=== PATIENT | female | born 1940 | race Caucasian/White ===

== ENCOUNTER → 2023-11-25 16:00 | Outpatient (REF) | payer MEDICARE, OTHER, SELFPAY ==
[2023-11-25 16:34] LABS: % Eosinophils 9.9 % (0-6); % Immature Granulocytes 0.2 % (0-0.5); % Lymphocytes 27.6 % (20.5-51.1); % Monocytes 13.8 % (1.7-9.3); % Neutrophils 47.5 % (42.2-75.2); Absolute Basophils 0.1 10^3/uL (0-0.2); Absolute Eosinophils 0.8 10^3/uL (0-0.7); Absolute Lymphocytes 2.2 10^3/uL (1.2-3.4); Absolute Monocytes 1.1 10^3/uL (0.1-0.6); Absolute Neutrophils 3.8 10^3/uL (1.4-6.5); Hematocrit 39.7 % (37.0-47.0); Hemoglobin 13.1 g/dL (12.0-16.0); Mean Corpuscular Volume 78.9 fL (81.0-99.0); Mean Platelet Volume 10.2 fL (7.4-10.4); Nucleated Red Blood Cells % 0 %; Platelet Count 401 10^3/uL (130-400); Red Blood Cell Count 5.03 10^6/uL (4.20-5.40); Red Cell Dist. Width 15.4 % (11.5-14.5)
== END ==
LOC: REG 16:00
PROVIDERS: ATTENDING PHYSICIAN Internal Medicine Hematology & Oncology; FAMILY PHYSICIAN Internal Medicine Geriatric Medicine
DX: D45 Polycythemia vera (principal); C21.1 Malignant neoplasm of anal canal; Z85.3 Personal history of malignant neoplasm of breast; R91.1 Solitary pulmonary nodule
CPT/HCPCS: 36415; 85025

== ENCOUNTER → 2023-12-17 16:05 | Outpatient (REF) | payer MEDICARE, OTHER, SELFPAY ==
[2023-12-17 18:04] LABS: % Basophils 0.7 % (0-2); % Eosinophils 10.4 % (0-6); % Immature Granulocytes 0.4 % (0-0.5); % Lymphocytes 26.5 % (20.5-51.1); % Monocytes 10.7 % (1.7-9.3); % Neutrophils 51.3 % (42.2-75.2); Absolute Basophils 0.1 10^3/uL (0-0.2); Absolute Eosinophils 0.7 10^3/uL (0-0.7); Absolute Lymphocytes 1.8 10^3/uL (1.2-3.4); Absolute Monocytes 0.7 10^3/uL (0.1-0.6); Absolute Neutrophils 3.5 10^3/uL (1.4-6.5); Hematocrit 38.9 % (37.0-47.0); Mean Corp Hgb Conc. 33.4 g/dL (33.0-37.0); Mean Corpuscular Hgb 26.6 pg (27.0-31.0); Mean Corpuscular Volume 79.6 fL (81.0-99.0); Nucleated Red Blood Cells % 0 %; Platelet Count 404 10^3/uL (130-400); Red Blood Cell Count 4.89 10^6/uL (4.20-5.40); Red Cell Dist. Width 16.8 % (11.5-14.5); White Blood Cell Count 6.8 10^3/uL (4.8-10.8)
== END ==
LOC: REG 16:05
PROVIDERS: ATTENDING PHYSICIAN Internal Medicine Hematology & Oncology; FAMILY PHYSICIAN Internal Medicine Geriatric Medicine
DX: D45 Polycythemia vera (principal); C21.1 Malignant neoplasm of anal canal; Z85.3 Personal history of malignant neoplasm of breast; R91.1 Solitary pulmonary nodule
CPT/HCPCS: 36415; 85025

== ENCOUNTER → 2024-01-16 11:52 | Outpatient (REF) | payer MEDICARE, OTHER, SELFPAY ==
[2024-01-16 13:10] LABS: % Basophils 0.7 % (0-2); % Eosinophils 9.7 % (0-6); % Immature Granulocytes 0.2 % (0-0.5); % Lymphocytes 25.2 % (20.5-51.1); % Monocytes 11.1 % (1.7-9.3); % Neutrophils 53.1 % (42.2-75.2); Absolute Eosinophils 0.5 10^3/uL (0-0.7); Absolute Lymphocytes 1.4 10^3/uL (1.2-3.4); Absolute Monocytes 0.6 10^3/uL (0.1-0.6); Absolute Neutrophils 2.9 10^3/uL (1.4-6.5); Hematocrit 38.5 % (37.0-47.0); Hemoglobin 12.2 g/dL (12.0-16.0); Mean Corp Hgb Conc. 31.7 g/dL (33.0-37.0); Mean Corpuscular Hgb 25.8 pg (27.0-31.0); Mean Corpuscular Volume 81.6 fL (81.0-99.0); Mean Platelet Volume 10.8 fL (7.4-10.4); Nucleated Red Blood Cells % 0 %; Platelet Count 320 10^3/uL (130-400); Red Blood Cell Count 4.72 10^6/uL (4.20-5.40); Red Cell Dist. Width 17.2 % (11.5-14.5); White Blood Cell Count 5.5 10^3/uL (4.8-10.8)
== END ==
LOC: REG 11:52
PROVIDERS: ATTENDING PHYSICIAN Internal Medicine Hematology & Oncology; FAMILY PHYSICIAN Internal Medicine Geriatric Medicine
DX: D45 Polycythemia vera (principal); C21.1 Malignant neoplasm of anal canal; Z85.3 Personal history of malignant neoplasm of breast; R91.1 Solitary pulmonary nodule
CPT/HCPCS: 36415; 85025

== ENCOUNTER → 2024-02-20 14:14 | Outpatient (REF) | payer MEDICARE, OTHER, SELFPAY ==
[2024-02-20 14:35] LABS: % Basophils 0.7 % (0-2); % Eosinophils 6.3 % (0-6); % Immature Granulocytes 0.1 % (0-0.5); % Lymphocytes 33.4 % (20.5-51.1); % Monocytes 13.5 % (1.7-9.3); Absolute Basophils 0.1 10^3/uL (0-0.2); Absolute Eosinophils 0.4 10^3/uL (0-0.7); Absolute Lymphocytes 2.2 10^3/uL (1.2-3.4); Absolute Monocytes 0.9 10^3/uL (0.1-0.6); Absolute Neutrophils 3.1 10^3/uL (1.4-6.5); Hematocrit 41.1 % (37.0-47.0); Hemoglobin 13.1 g/dL (12.0-16.0); Mean Corp Hgb Conc. 31.9 g/dL (33.0-37.0); Mean Corpuscular Hgb 25.9 pg (27.0-31.0); Mean Corpuscular Volume 81.4 fL (81.0-99.0); Mean Platelet Volume 10.1 fL (7.4-10.4); Nucleated Red Blood Cells % 0 %; Platelet Count 338 10^3/uL (130-400); Red Blood Cell Count 5.05 10^6/uL (4.20-5.40); Red Cell Dist. Width 18.1 % (11.5-14.5); White Blood Cell Count 6.7 10^3/uL (4.8-10.8)
== END ==
LOC: REG 14:14
PROVIDERS: ATTENDING PHYSICIAN Internal Medicine Hematology & Oncology; FAMILY PHYSICIAN Internal Medicine Geriatric Medicine
DX: D45 Polycythemia vera (principal); C21.1 Malignant neoplasm of anal canal; Z85.3 Personal history of malignant neoplasm of breast; R91.1 Solitary pulmonary nodule
CPT/HCPCS: 36415; 85025

== ENCOUNTER → 2024-03-22 15:24 | Outpatient (REF) | payer MEDICARE, OTHER, SELFPAY ==
[2024-03-22 16:38] LABS: % Basophils 0.8 % (0-2); % Eosinophils 7.5 % (0-6); % Immature Granulocytes 0.3 % (0-0.5); % Lymphocytes 22.5 % (20.5-51.1); % Monocytes 11.1 % (1.7-9.3); % Neutrophils 57.8 % (42.2-75.2); Absolute Basophils 0.1 10^3/uL (0-0.2); Absolute Eosinophils 0.6 10^3/uL (0-0.7); Absolute Lymphocytes 1.8 10^3/uL (1.2-3.4); Absolute Monocytes 0.9 10^3/uL (0.1-0.6); Absolute Neutrophils 4.5 10^3/uL (1.4-6.5); Hematocrit 42.4 % (37.0-47.0); Hemoglobin 13.4 g/dL (12.0-16.0); Mean Corp Hgb Conc. 31.6 g/dL (33.0-37.0); Mean Corpuscular Hgb 25.8 pg (27.0-31.0); Mean Corpuscular Volume 81.7 fL (81.0-99.0); Mean Platelet Volume 10.4 fL (7.4-10.4); Nucleated Red Blood Cells % 0 %; Platelet Count 342 10^3/uL (130-400); Red Blood Cell Count 5.19 10^6/uL (4.20-5.40); Red Cell Dist. Width 17.2 % (11.5-14.5); White Blood Cell Count 7.8 10^3/uL (4.8-10.8)
== END ==
LOC: REG 15:24
PROVIDERS: ATTENDING PHYSICIAN Internal Medicine Hematology & Oncology; FAMILY PHYSICIAN Internal Medicine Geriatric Medicine
DX: D45 Polycythemia vera (principal); C21.1 Malignant neoplasm of anal canal; Z85.3 Personal history of malignant neoplasm of breast; R91.1 Solitary pulmonary nodule
CPT/HCPCS: 36415; 85025

== ENCOUNTER → 2024-05-14 15:25 | Outpatient (REF) | payer MEDICARE, OTHER, SELFPAY ==
[2024-05-14 16:37] LABS: % Basophils 0.8 % (0-2); % Eosinophils 9.3 % (0-6); % Immature Granulocytes 0.2 % (0-0.5); % Lymphocytes 30.2 % (20.5-51.1); % Neutrophils 46.5 % (42.2-75.2); Absolute Basophils 0.1 10^3/uL (0-0.2); Absolute Eosinophils 0.6 10^3/uL (0-0.7); Absolute Lymphocytes 1.9 10^3/uL (1.2-3.4); Absolute Monocytes 0.8 10^3/uL (0.1-0.6); Absolute Neutrophils 2.9 10^3/uL (1.4-6.5); Hematocrit 39.2 % (37.0-47.0); Mean Corp Hgb Conc. 33.2 g/dL (33.0-37.0); Mean Corpuscular Hgb 26.6 pg (27.0-31.0); Mean Corpuscular Volume 80.3 fL (81.0-99.0); Mean Platelet Volume 10.9 fL (7.4-10.4); Nucleated Red Blood Cells % 0 %; Platelet Count 337 10^3/uL (130-400); Red Blood Cell Count 4.88 10^6/uL (4.20-5.40); Red Cell Dist. Width 17.3 % (11.5-14.5); White Blood Cell Count 6.2 10^3/uL (4.8-10.8)
== END ==
LOC: REG 15:25
PROVIDERS: ATTENDING PHYSICIAN Internal Medicine Hematology & Oncology; FAMILY PHYSICIAN Internal Medicine Geriatric Medicine
DX: D45 Polycythemia vera (principal); C21.1 Malignant neoplasm of anal canal; Z85.3 Personal history of malignant neoplasm of breast; R91.1 Solitary pulmonary nodule
CPT/HCPCS: 36415; 85025

== ENCOUNTER → 2024-06-14 14:53 | Outpatient (REF) | payer MEDICARE, OTHER, SELFPAY ==
[2024-06-14 15:35] LABS: % Basophils 0.7 % (0-2); % Eosinophils 5.8 % (0-6); % Immature Granulocytes 1.3 % (0-0.5); % Lymphocytes 29.9 % (20.5-51.1); % Monocytes 11.9 % (1.7-9.3); % Neutrophils 50.4 % (42.2-75.2); Absolute Eosinophils 0.4 10^3/uL (0-0.7); Absolute Immature Granulocytes 0.1 10^3/uL (0-0.05); Absolute Lymphocytes 1.8 10^3/uL (1.2-3.4); Absolute Monocytes 0.7 10^3/uL (0.1-0.6); Hematocrit 42.8 % (37.0-47.0); Hemoglobin 14.3 g/dL (12.0-16.0); Mean Corp Hgb Conc. 33.4 g/dL (33.0-37.0); Mean Corpuscular Volume 83.8 fL (81.0-99.0); Mean Platelet Volume 10.2 fL (7.4-10.4); Nucleated Red Blood Cells % 0 %; Platelet Count 279 10^3/uL (130-400); Red Blood Cell Count 5.11 10^6/uL (4.20-5.40); Red Cell Dist. Width 17.2 % (11.5-14.5)
== END ==
LOC: REG 14:53
PROVIDERS: ATTENDING PHYSICIAN Internal Medicine Hematology & Oncology; FAMILY PHYSICIAN Internal Medicine Geriatric Medicine
DX: D45 Polycythemia vera (principal); C21.1 Malignant neoplasm of anal canal; Z85.3 Personal history of malignant neoplasm of breast; R91.1 Solitary pulmonary nodule
CPT/HCPCS: 36415; 85025

== ENCOUNTER → 2024-07-22 13:46 | Outpatient (REF) | payer MEDICARE, OTHER, SELFPAY ==
[2024-07-22 15:14] LABS: % Basophils 0.7 % (0-2); % Immature Granulocytes 0.3 % (0-0.5); % Lymphocytes 20.2 % (20.5-51.1); % Monocytes 12.3 % (1.7-9.3); % Neutrophils 63.5 % (42.2-75.2); Absolute Basophils 0.1 10^3/uL (0-0.2); Absolute Eosinophils 0.2 10^3/uL (0-0.7); Absolute Lymphocytes 1.4 10^3/uL (1.2-3.4); Absolute Monocytes 0.9 10^3/uL (0.1-0.6); Absolute Neutrophils 4.5 10^3/uL (1.4-6.5); Hematocrit 39.3 % (37.0-47.0); Hemoglobin 13.1 g/dL (12.0-16.0); Mean Corp Hgb Conc. 33.3 g/dL (33.0-37.0); Nucleated Red Blood Cells % 0 %; Platelet Count 409 10^3/uL (130-400); Red Blood Cell Count 4.85 10^6/uL (4.20-5.40); Red Cell Dist. Width 16.3 % (11.5-14.5); White Blood Cell Count 7.1 10^3/uL (4.8-10.8)
== END ==
LOC: REG 13:46
PROVIDERS: ATTENDING PHYSICIAN Internal Medicine Hematology & Oncology; FAMILY PHYSICIAN Internal Medicine Geriatric Medicine
DX: D45 Polycythemia vera (principal); C21.1 Malignant neoplasm of anal canal; Z85.3 Personal history of malignant neoplasm of breast; R91.1 Solitary pulmonary nodule
CPT/HCPCS: 36415; 85025

== ENCOUNTER → 2024-08-20 15:44 | Outpatient (REF) | payer MEDICARE, OTHER, SELFPAY ==
[2024-08-20 16:50] LABS: % Basophils 0.8 % (0-2); % Eosinophils 4.2 % (0-6); % Immature Granulocytes 0.6 % (0-0.5); % Lymphocytes 24.8 % (20.5-51.1); % Monocytes 13.6 % (1.7-9.3); Absolute Basophils 0.1 10^3/uL (0-0.2); Absolute Eosinophils 0.3 10^3/uL (0-0.7); Absolute Lymphocytes 1.8 10^3/uL (1.2-3.4); Hematocrit 40.4 % (37.0-47.0); Hemoglobin 13.2 g/dL (12.0-16.0); Mean Corp Hgb Conc. 32.7 g/dL (33.0-37.0); Mean Corpuscular Hgb 26.8 pg (27.0-31.0); Mean Corpuscular Volume 82.1 fL (81.0-99.0); Mean Platelet Volume 10.2 fL (7.4-10.4); Nucleated Red Blood Cells % 0 %; Platelet Count 383 10^3/uL (130-400); Red Blood Cell Count 4.92 10^6/uL (4.20-5.40); Red Cell Dist. Width 16.3 % (11.5-14.5); White Blood Cell Count 7.2 10^3/uL (4.8-10.8)
[2024-08-20 17:04] LABS: ALT (SGPT) 24 U/L (0-35); AST (SGOT) 37 U/L (14-36); Albumin 4.3 g/dl (3.5-5.0); Alkaline Phosphatase 57 U/L (38-126); Blood Urea Nitrogen 22 mg/dl (7-17); Calcium 9.5 mg/dl (8.4-10.2); Carbon Dioxide 30 mmol/L (22-30); Chloride 91 mmol/L (98-107); Glucose 81 mg/dl (70-99); HDL Cholesterol 50 mg/dl; LDL Cholesterol, Calculated 62 mg/dl; Potassium 4.6 mmol/L (3.5-5.1); Sodium 134 mmol/L (135-145); Total Bilirubin 0.2 mg/dl (0.2-1.3); Total Cholesterol 173 mg/dl (50-199); Total Protein 6.7 g/dl (6.3-8.2); Triglyceride 305 mg/dl (10-149); Very Low Density Lipoprotein 61 mg/dl (0-30); eGFR 36.87
[2024-08-20 17:12] LABS: Urine Albumin Negative (Neg - Trace); Urine Bilirubin Negative (Negative); Urine Character Clear (Clear); Urine Color Yellow; Urine Glucose Negative (Negative); Urine Ketone Negative (Negative); Urine Leukocyte Negative (Negative); Urine Nitrite Negative (Negative); Urine Occult Blood Negative (Negative); Urine Urobilinogen Negative (Neg - 1+)
[2024-08-20 17:22] LABS: Free T4 1.52 ng/dl (0.78-2.19); Vitamin D, 25-OH*** 78.8 ng/mL (30-80)
[2024-08-20 17:35] LABS: TSH 0.84 uIU/ml (0.47-4.68)
== END ==
LOC: REG 15:44
PROVIDERS: ATTENDING PHYSICIAN Internal Medicine Hematology & Oncology; FAMILY PHYSICIAN Internal Medicine Geriatric Medicine
DX: I10 Essential (primary) hypertension (principal); M60.80 Other myositis, unspecified site; E87.1 Hypo-osmolality and hyponatremia; R10.32 Left lower quadrant pain; N18.31 Chronic kidney disease, stage 3a; R60.9 Edema, unspecified; R19.7 Diarrhea, unspecified; Z13.31 Encounter for screening for depression; E55.9 Vitamin D deficiency, unspecified; D45 Polycythemia vera; E53.8 Deficiency of other specified B group vitamins; E04.1 Nontoxic single thyroid nodule
CPT/HCPCS: 80053; 80061; 81003; 82306; 84439; 84443; 85025

== ENCOUNTER → 2024-09-17 11:37 | Outpatient (REF) | payer MEDICARE, OTHER, SELFPAY ==
[2024-09-17 12:33] LABS: % Basophils 0.7 % (0-2); % Eosinophils 4.8 % (0-6); % Immature Granulocytes 0.3 % (0-0.5); % Lymphocytes 26.6 % (20.5-51.1); % Monocytes 17.3 % (1.7-9.3); % Neutrophils 50.3 % (42.2-75.2); Absolute Eosinophils 0.3 10^3/uL (0-0.7); Absolute Lymphocytes 1.6 10^3/uL (1.2-3.4); Absolute Neutrophils 2.9 10^3/uL (1.4-6.5); Hematocrit 41.9 % (37.0-47.0); Hemoglobin 13.7 g/dL (12.0-16.0); Mean Corp Hgb Conc. 32.7 g/dL (33.0-37.0); Mean Corpuscular Hgb 26.6 pg (27.0-31.0); Mean Corpuscular Volume 81.4 fL (81.0-99.0); Mean Platelet Volume 10.8 fL (7.4-10.4); Nucleated Red Blood Cells % 0 %; Platelet Count 296 10^3/uL (130-400); Red Blood Cell Count 5.15 10^6/uL (4.20-5.40); Red Cell Dist. Width 16.6 % (11.5-14.5); White Blood Cell Count 5.8 10^3/uL (4.8-10.8)
[2024-09-17 12:59] LABS: ALT (SGPT) 24 U/L (0-35); AST (SGOT) 34 U/L (14-36); Albumin 4.2 g/dl (3.5-5.0); Alkaline Phosphatase 57 U/L (38-126); Blood Urea Nitrogen 24 mg/dl (7-17); Calcium 9.5 mg/dl (8.4-10.2); Carbon Dioxide 36 mmol/L (22-30); Chloride 92 mmol/L (98-107); Glucose 112 mg/dl (70-99); HDL Cholesterol 45 mg/dl; LDL Cholesterol, Calculated 86 mg/dl; Sodium 135 mmol/L (135-145); Total Bilirubin 0.3 mg/dl (0.2-1.3); Total Cholesterol 168 mg/dl (50-199); Total Protein 6.6 g/dl (6.3-8.2); Triglyceride 186 mg/dl (10-149); Very Low Density Lipoprotein 37 mg/dl (0-30); eGFR 44.36
== END ==
LOC: REG 11:37
PROVIDERS: ATTENDING PHYSICIAN Internal Medicine Hematology & Oncology; FAMILY PHYSICIAN Internal Medicine Geriatric Medicine
DX: D45 Polycythemia vera (principal); C21.1 Malignant neoplasm of anal canal; Z85.3 Personal history of malignant neoplasm of breast; R91.1 Solitary pulmonary nodule; E78.2 Mixed hyperlipidemia; I11.9 Hypertensive heart disease without heart failure
CPT/HCPCS: 36415; 80053; 80061; 85025

== ENCOUNTER → 2024-10-26 14:22 | Outpatient (REF) | payer MEDICARE, OTHER, SELFPAY ==
[2024-10-26 15:09] LABS: % Basophils 0.6 % (0-2); % Eosinophils 3.9 % (0-6); % Immature Granulocytes 0.3 % (0-0.5); % Lymphocytes 27.7 % (20.5-51.1); % Monocytes 15.2 % (1.7-9.3); % Neutrophils 52.3 % (42.2-75.2); Absolute Eosinophils 0.3 10^3/uL (0-0.7); Absolute Lymphocytes 1.8 10^3/uL (1.2-3.4); Absolute Neutrophils 3.3 10^3/uL (1.4-6.5); Hematocrit 41.2 % (37.0-47.0); Hemoglobin 13.4 g/dL (12.0-16.0); Mean Corp Hgb Conc. 32.5 g/dL (33.0-37.0); Mean Corpuscular Hgb 26.6 pg (27.0-31.0); Mean Corpuscular Volume 81.9 fL (81.0-99.0); Mean Platelet Volume 10.3 fL (7.4-10.4); Nucleated Red Blood Cells % 0 %; Platelet Count 292 10^3/uL (130-400); Red Blood Cell Count 5.03 10^6/uL (4.20-5.40); Red Cell Dist. Width 18.5 % (11.5-14.5); White Blood Cell Count 6.4 10^3/uL (4.8-10.8)
== END ==
LOC: REG 14:22
PROVIDERS: ATTENDING PHYSICIAN Internal Medicine Hematology & Oncology; FAMILY PHYSICIAN Internal Medicine Geriatric Medicine
DX: D45 Polycythemia vera (principal); C21.1 Malignant neoplasm of anal canal; Z85.3 Personal history of malignant neoplasm of breast; R91.1 Solitary pulmonary nodule
CPT/HCPCS: 36415; 85025

== ENCOUNTER → 2024-11-24 15:05 | Outpatient (REF) | payer MEDICARE, OTHER, SELFPAY ==
[2024-11-24 15:35] LABS: % Basophils 0.6 % (0-2); % Immature Granulocytes 0.4 % (0-0.5); % Lymphocytes 25.1 % (20.5-51.1); % Monocytes 12.9 % (1.7-9.3); Absolute Basophils 0.1 10^3/uL (0-0.2); Absolute Eosinophils 0.2 10^3/uL (0-0.7); Absolute Neutrophils 4.7 10^3/uL (1.4-6.5); Hematocrit 43.6 % (37.0-47.0); Hemoglobin 13.9 g/dL (12.0-16.0); Mean Corp Hgb Conc. 31.9 g/dL (33.0-37.0); Mean Corpuscular Hgb 26.8 pg (27.0-31.0); Mean Platelet Volume 10.3 fL (7.4-10.4); Nucleated Red Blood Cells % 0 %; Platelet Count 294 10^3/uL (130-400); Red Blood Cell Count 5.19 10^6/uL (4.20-5.40); Red Cell Dist. Width 18.6 % (11.5-14.5); White Blood Cell Count 8.1 10^3/uL (4.8-10.8)
== END ==
LOC: REG 15:05
PROVIDERS: ATTENDING PHYSICIAN Internal Medicine Hematology & Oncology; FAMILY PHYSICIAN Internal Medicine Geriatric Medicine
DX: D45 Polycythemia vera (principal); C21.1 Malignant neoplasm of anal canal; Z85.3 Personal history of malignant neoplasm of breast; R91.1 Solitary pulmonary nodule
CPT/HCPCS: 36415; 85025

== ENCOUNTER 2024-11-27 19:35 | Emergency (ER) | payer MEDICARE, OTHER, SELFPAY ==
[2024-11-27 19:40] VITALS: BP 194/85
--- NOTE | 2024-11-27 20:57 | ED.GENMED ---
History of Present Illness
General
Chief Complaint: Blood Pressure Problem
Source: patient
Exam Limitations: none
Time Seen by Provider: 11/27/24 20:43
History of Present Illness
History of Present Illness:
See MDM
Past History
Past History
ED Past Medical History: GERD, HTN, Hypercholesterolemia and Other (fibromyalgia, breast cancer, frequent headaches, dizziness, difficulty with balance, back pain, chronic cough, sleep apnea, diverticulosis, gastroenteritis ambulatory dysfunction,
history of polio, breast CA in remission, impaired vision)
ED Past Surgical History: Gynecological (Hysterectomy), Orthopedic (Right shoulder surgery), Tonsilectomy and Other (mastectomy, implants bilateral, sinus surgery,)
Social History
Tobacco: Non-smoker
Alcohol: None
Drug: None
Personal:
Living: with family
Employment: Retired
Family History
Family History: Other (n/c)
Phy Exam
Physical Exam
Physical Exam:
See MDM
Course
Orders/Labs/Results
Orders:
Orders
11/27/24 20:56
Electrocardiogram (*1) Urgent
Reason for Study: Hypertension, Benign
CT Head W/o Iv Contrast Urgent
Comment:
Reason For Exam: headache, HTN
EKG- Treatment ONCE
0.9% Sodium Chloride 1000 ml [Nss] 1,000 ml IV BOLUS
HydrALAZINE [Apresoline] 10 mg IV NOW STA
11/27/24 21:12
Complete Blood Count/With Diff Urgent
Comprehensive Metabolic Panel Urgent
Troponin I Urgent
11/27/24 22:14
EKG [Electrocardiogram (*1)] Urgent
Reason for Study: Chest Pain
EKG- Treatment ONCE
11/27/24 22:39
Lorazepam [Ativan] 0.5 mg IV NOW STA
Abnormal Lab Results
11/27/24
21:12
MCH 26.4 L pg
(27.0-31.0)
MCHC 32.4 L g/dL
(33.0-37.0)
RDW 18.7 H %
(11.5-14.5)
Absolute Monos (auto) 0.8 H 10^3/uL
(0.1-0.6)
Monocytes % 14.3 H %
(1.7-9.3)
Chloride 96 L mmol/L
(98-107)
Carbon Dioxide 34 H mmol/L
(22-30)
BUN 23 H mg/dl
(7-17)
Creatinine 1.2 H mg/dL
(0.6-1.0)
11/27/24 21:12
11/27/24 21:12
Vital Signs
Initial and Last Documented VS:
Initial Vital Signs
Temp Pulse Resp BP Pulse Ox
97.7 F 80 16 194/85 98
11/27/24 19:40 11/27/24 19:40 11/27/24 19:40 11/27/24 19:40 11/27/24 19:40
Last Documented Vital Signs
Temp Pulse Resp BP Pulse Ox
97.7 F 70 16 193/79 98
11/27/24 19:40 11/27/24 21:44 11/27/24 19:40 11/27/24 21:44 11/27/24 19:40
MDM/Problems Addressed
Differential Diagnosis Includes:
HPI and MDM Narrative:
84-year-old female presenting for evaluation of hypertension. She noticed it at a doctor's appointment recently. Since then, she developed intermittent headaches. She started doubling up her carvedilol. She talked to her PCP and they are going
to further evaluate her hypertension. Patient was concerned because pressure still remained elevated despite her doubling her medicine.
Patient does acknowledge that she does not check her blood pressure routinely. It is not certain how long is been elevated like this. Given her headache, will obtain CT head. Will obtain basic blood work. Patient is concerned about her
hematocrit given her prior history of polycythemia vera. Will give IV fluids and will give IV dose of hydralazine
Physical exam
General: Well appearing and non-toxic
HEENT: protecting airway. Pupils equal and reactive. No tenderness to palpation of temporal artery
Neck: appears supple
CV: No evidence of cyanosis. Regular rate and rhythm
Resp: No accessory muscle use
Abd: Non-distended
Extremities: No deformities. No pitting edema noted
Neuro: alert
Psych: Normal affect
Skin: Intact
Problems Addressed including Acute and Chronic Conditions affecting care:
1. Hypertension
Acuity: acute
Prognosis: unstable
Details: Will give dose of IV hydralazine and obtain basic blood work to rule out endorgan damage
2. Headache
Acuity: acute
Prognosis: stable
Details: Given the uncontrolled hypertension, will obtain CT head
Updates
After the IV hydralazine, patient appears to be having a reaction to it. She complains of skin flushing and feels [id number]. Will give dose of Ativan for symptoms. However, blood pressure is improved
Differential Diagnosis (but not limited to): Hypertension, hypertension emergency, dehydration
Testing considered: ESR and CRP
Drug therapy (if applicable): OTC meds, please see d/c instruction regarding Rx drugs
Amount and/or Complexity of Data Reviewed
Clinical info obtained from: Patient
External data reviewed: N/A
Labs I independently reviewed (but not limited to): Troponin normal
Radiology: N/A
Pulse Ox: not hypoxic
EKG independently reviewed: N/A
Library Science Professor: Sinus rhythm
Critical Care: N/A
Risk of Complication:
Social Determinants of health: Good social support
Discussed with other providers: N/A
Escalation of Care includes Admit/Obs: After being observed in the Emergency Department, pt stable for discharge.
Occasional wrong word or 'sound a like' substitutions may have occurred due to the inherent limitations of voice recognition software. Read the chart carefully and recognize, using context, where substitutions have occurred.
*Critical Care Note
Total Time (30-74mins, 75-104mins- exclusive of procedures): Not Applicable
ED Attending Note
-
Portions of this chart may have been created with voice recognition software.� Occasional wrong word or��sound alike� substitutions may have occurred due to the inherent limitations of voice recognition software.
Discharge Plan
Departure
Patient Disposition: Home (Routine Discharge)
Date of Disposition: 11/27/24
Time of Disposition: 22:45
Patient with high blood pressure during this ER visit?: Yes
Discharge Problem:
HTN (hypertension)
Instructions: High Blood Pressure (DC), BLOOD PRESSURE
Prescriptions:
New
lisinopril 10 mg tablet
10 mg PO DAILY Qty: 14 0RF
No Action
multivitamin Tablet
1 tab PO DAILY
acetaminophen 325 mg Tablet
325 mg PO DAILY
hydrocodone-acetaminophen 10-325 mg Tablet
0.5 - 1 tab PO PRN PRN (Reason: pain)
triamterene-hydrochlorothiazid 75-50 mg Tablet
1 tab PO DAILY
magnesium 200 mg Tablet
200 mg PO PRN PRN (Reason: cramps)
Patient Comments:
chewable
rosuvastatin 20 mg Tablet
20 mg PO QPM
duloxetine 60 mg Capsule,Delayed Release(Dr/Ec)
60 mg PO DAILY
Pepcid Complete 10-800-165 mg Tablet,Chewable
1 tab PO PRN PRN (Reason: indigestion)
eszopiclone [Lunesta] 3 mg Tablet
3 mg PO HS
potassium chloride 20 mEq Tablet Extended Release
20 meq PO PRN PRN (Reason: .fatigue, abnormal heart rate)
CoQ-10 200 MG
200 mg PO DAILY
Vitamin D3
1 tab PO DAILY
Patient Comments:
does not know dose
docusate sodium 100 mg Capsule
100 mg PO BID 30 Days Qty: 60 0RF
Referrals:
Mayo Zimmerman MD [Family Provider] -
Activity Restrictions/Additional Instructions:
Please return for any worsening symptoms.
You may return at any time if you have further concerns.
Please continue to double your carvedilol. Take your blood pressure daily during midday. If your blood pressure is greater than 160/90, take a dose of lisinopril
Please follow up with your doctor at the first available appointment, preferably this week. Please discuss your blood pressure and your ongoing symptoms.
Thank you for choosing [facility].
Interventions
Interventions:
*Risk Screen - Suicide Last Done: 11/27/24 19:43
*Neglect/Abuse Screening Last Done: 11/27/24 19:43
Discharge Date and Time
Print Language: FILIPINO
[2024-11-27 21:21] LABS: % Basophils 0.6 % (0-2); % Immature Granulocytes 0.2 % (0-0.5); % Lymphocytes 32.6 % (20.5-51.1); % Monocytes 14.3 % (1.7-9.3); % Neutrophils 47.3 % (42.2-75.2); Absolute Eosinophils 0.3 10^3/uL (0-0.7); Absolute Lymphocytes 1.8 10^3/uL (1.2-3.4); Absolute Monocytes 0.8 10^3/uL (0.1-0.6); Absolute Neutrophils 2.6 10^3/uL (1.4-6.5); Hematocrit 42.6 % (37.0-47.0); Hemoglobin 13.8 g/dL (12.0-16.0); Mean Corp Hgb Conc. 32.4 g/dL (33.0-37.0); Mean Corpuscular Hgb 26.4 pg (27.0-31.0); Mean Corpuscular Volume 81.5 fL (81.0-99.0); Mean Platelet Volume 10.1 fL (7.4-10.4); Nucleated Red Blood Cells % 0 %; Platelet Count 285 10^3/uL (130-400); Red Blood Cell Count 5.23 10^6/uL (4.20-5.40); Red Cell Dist. Width 18.7 % (11.5-14.5); White Blood Cell Count 5.4 10^3/uL (4.8-10.8)
[2024-11-27 21:39] LABS: ALT (SGPT) 24 U/L (0-35); AST (SGOT) 33 U/L (14-36); Albumin 4.1 g/dl (3.5-5.0); Alkaline Phosphatase 55 U/L (38-126); Blood Urea Nitrogen 23 mg/dl (7-17); Calcium 9.5 mg/dl (8.4-10.2); Carbon Dioxide 34 mmol/L (22-30); Chloride 96 mmol/L (98-107); Glucose 86 mg/dl (70-99); Potassium 4.3 mmol/L (3.5-5.1); Sodium 135 mmol/L (135-145); Total Bilirubin 0.4 mg/dl (0.2-1.3); Total Protein 6.7 g/dl (6.3-8.2); eGFR 44.36
[2024-11-27] MEDS: APRESOLINE 10 MG IV (21:44)
[2024-11-27] MEDS: NSS 1000 IV (21:46)
[2024-11-27 21:47] LABS: Troponin I < 0.012 ng/ml
[2024-11-27 22:33] VITALS: BP 171/70
[2024-11-27] MEDS: ATIVAN 0.5 MG IV (22:51)
[2024-11-27 23:35] VITALS: BP 170/69
== END 2024-11-28 00:02 | disposition home or self-care (01) ==
LOC: EMR 19:35
PROVIDERS: EMERGENCY PHYSICIAN Student in an Organized Health Care Education/Training Program; FAMILY PHYSICIAN Internal Medicine Geriatric Medicine
DX: I10 Essential (primary) hypertension (principal); K21.9 Gastro-esophageal reflux disease without esophagitis; E78.00 Pure hypercholesterolemia, unspecified; M79.7 Fibromyalgia; G47.30 Sleep apnea, unspecified; Z85.3 Personal history of malignant neoplasm of breast; Z90.710 Acquired absence of both cervix and uterus; Z86.12 Personal history of poliomyelitis
CPT/HCPCS: 99284; 96374; 96375; 96361; 70450; 80053; 84484; 85025; 93005

== ENCOUNTER → 2024-12-09 14:50 | Outpatient (REF) | payer MEDICARE, OTHER, SELFPAY ==
[2024-12-09 16:48] LABS: Blood Urea Nitrogen 25 mg/dl (7-17); Calcium 10.2 mg/dl (8.4-10.2); Carbon Dioxide 34 mmol/L (22-30); Chloride 91 mmol/L (98-107); Glucose 114 mg/dl (70-99); Potassium 4.2 mmol/L (3.5-5.1); Sodium 135 mmol/L (135-145); eGFR 44.36
== END ==
LOC: REG 14:50
PROVIDERS: ATTENDING PHYSICIAN Nurse Practitioner Family; FAMILY PHYSICIAN Internal Medicine Geriatric Medicine
DX: I10 Essential (primary) hypertension (principal)
CPT/HCPCS: 36415; 80048

== ENCOUNTER → 2024-12-14 15:05 | Outpatient (REF) | payer MEDICARE, OTHER, SELFPAY | LOC: HWRCS 15:05 | PROVIDERS: ATTENDING PHYSICIAN Nurse Practitioner Family; FAMILY PHYSICIAN Internal Medicine Geriatric Medicine | DX: R01.1 Cardiac murmur, unspecified (principal) | CPT/HCPCS: 93306 ==

== ENCOUNTER → 2025-02-09 12:30 | Outpatient (REF) | payer MEDICARE, OTHER, SELFPAY ==
[2025-02-09 13:38] LABS: % Basophils 0.6 % (0-2); % Eosinophils 5.9 % (0-6); % Immature Granulocytes 0.2 % (0-0.5); % Lymphocytes 24.2 % (20.5-51.1); % Neutrophils 56.1 % (42.2-75.2); Absolute Eosinophils 0.4 10^3/uL (0-0.7); Absolute Lymphocytes 1.6 10^3/uL (1.2-3.4); Absolute Monocytes 0.9 10^3/uL (0.1-0.6); Absolute Neutrophils 3.7 10^3/uL (1.4-6.5); Hematocrit 40.9 % (37.0-47.0); Hemoglobin 13.9 g/dL (12.0-16.0); Mean Corpuscular Hgb 28.8 pg (27.0-31.0); Mean Corpuscular Volume 84.9 fL (81.0-99.0); Nucleated Red Blood Cells % 0 %; Platelet Count 302 10^3/uL (130-400); Red Blood Cell Count 4.82 10^6/uL (4.20-5.40); Red Cell Dist. Width 16.9 % (11.5-14.5); White Blood Cell Count 6.6 10^3/uL (4.8-10.8)
[2025-02-09 13:57] LABS: Intact PTH 21.4 pg/ml (13.6-85.8)
[2025-02-09 14:04] LABS: ALT (SGPT) 23 U/L (0-35); AST (SGOT) 26 U/L (14-36); Albumin 3.9 g/dl (3.5-5.0); Alkaline Phosphatase 49 U/L (38-126); Blood Urea Nitrogen 28 mg/dl (7-17); Calcium 10.7 mg/dl (8.4-10.2); Carbon Dioxide 33 mmol/L (22-30); Chloride 98 mmol/L (98-107); Creatine Phosphokinase 75 U/L (30-135); Glucose 105 mg/dl (70-99); HDL Cholesterol 52 mg/dl; Iron 79 ug/dl (37-170); LDL Cholesterol, Calculated 74 mg/dl; Magnesium 1.6 mg/dl (1.6-2.3); Potassium 4.2 mmol/L (3.5-5.1); Sodium 139 mmol/L (135-145); Total Bilirubin 0.5 mg/dl (0.2-1.3); Total Cholesterol 176 mg/dl (50-199); Total Protein 6.4 g/dl (6.3-8.2); Triglyceride 250 mg/dl (10-149); Very Low Density Lipoprotein 50 mg/dl (0-30); eGFR 44.36
[2025-02-09 14:13] LABS: Percent Saturation 18 % (20-50); Total Iron Binding Capacity 426 ug/dl (265-497)
[2025-02-09 14:14] LABS: C-Reactive Protein < 5.00 mg/L (0.0-10.00)
[2025-02-09 14:31] LABS: Vitamin D, 25-OH*** 71.8 ng/mL (30-80)
[2025-02-09 14:34] LABS: Erythrocyte Sed Rate 19 mm/hour (0-20)
[2025-02-09 14:45] LABS: TSH 1.33 uIU/ml (0.47-4.68)
[2025-02-09 15:20] LABS: Folate 12.2 ng/ml (2.76-20); Vitamin B12 741 pg/ml (239-931)
[2025-02-10 12:12] LABS: Lyme Antibody Screen, EIA Negative (Negative)
== END ==
LOC: REG 12:30
PROVIDERS: ATTENDING PHYSICIAN Internal Medicine Hematology & Oncology; FAMILY PHYSICIAN Internal Medicine Geriatric Medicine
DX: D45 Polycythemia vera (principal); C21.1 Malignant neoplasm of anal canal; Z85.3 Personal history of malignant neoplasm of breast; R91.1 Solitary pulmonary nodule; I10 Essential (primary) hypertension; E78.2 Mixed hyperlipidemia; M60.80 Other myositis, unspecified site; E87.1 Hypo-osmolality and hyponatremia; R10.32 Left lower quadrant pain; N18.31 Chronic kidney disease, stage 3a; R60.9 Edema, unspecified; R19.7 Diarrhea, unspecified; Z13.31 Encounter for screening for depression; E55.9 Vitamin D deficiency, unspecified; E53.8 Deficiency of other specified B group vitamins; E04.1 Nontoxic single thyroid nodule; R53.83 Other fatigue; M62.89 Other specified disorders of muscle
CPT/HCPCS: 36415; 80053; 80061; 82306; 82550; 82607; 82728; 82746; 83540; 83550; 83735; 83970; 84443; 85025; 85652; 86140; 86618

== ENCOUNTER → 2025-03-15 10:18 | Outpatient (REF) | payer MEDICARE, OTHER, SELFPAY | LOC: PAVMRI 10:18 | PROVIDERS: ATTENDING PHYSICIAN Physical Medicine & Rehabilitation; FAMILY PHYSICIAN Internal Medicine Geriatric Medicine | DX: M47.27 Other spondylosis with radiculopathy, lumbosacral region (principal) | CPT/HCPCS: 72148 ==

== ENCOUNTER → 2025-04-12 13:45 | Outpatient (REF) | payer MEDICARE, OTHER, SELFPAY ==
[2025-04-12 14:34] LABS: Hematocrit 41.8 % (37.0-47.0); Hemoglobin 13.9 g/dL (12.0-16.0); Mean Corp Hgb Conc. 33.3 g/dL (33.0-37.0); Mean Corpuscular Volume 86.5 fL (81.0-99.0); Nucleated Red Blood Cells % 0 %; Platelet Count 316 10^3/uL (130-400); Red Cell Dist. Width 15.8 % (11.5-14.5)
== END ==
LOC: REG 13:45
PROVIDERS: ATTENDING PHYSICIAN Internal Medicine Hematology & Oncology; FAMILY PHYSICIAN Internal Medicine Geriatric Medicine
DX: D45 Polycythemia vera (principal); C21.1 Malignant neoplasm of anal canal; Z85.3 Personal history of malignant neoplasm of breast; R91.1 Solitary pulmonary nodule
CPT/HCPCS: 36415; 85025

== ENCOUNTER → 2025-07-25 16:01 | Outpatient (REF) | payer MEDICARE, OTHER, SELFPAY ==
[2025-07-25 17:42] LABS: Hematocrit 45.3 % (37.0-47.0); Hemoglobin 14.4 g/dL (12.0-16.0); Mean Corp Hgb Conc. 31.8 g/dL (33.0-37.0); Mean Corpuscular Volume 90.2 fL (81.0-99.0); Nucleated Red Blood Cells % 0 %; Platelet Count 303 10^3/uL (130-400); Red Cell Dist. Width 15.8 % (11.5-14.5)
== END ==
LOC: REG 16:01
PROVIDERS: ATTENDING PHYSICIAN Internal Medicine Hematology & Oncology; FAMILY PHYSICIAN Internal Medicine Geriatric Medicine
DX: D45 Polycythemia vera (principal); C21.1 Malignant neoplasm of anal canal; Z85.3 Personal history of malignant neoplasm of breast; R91.1 Solitary pulmonary nodule
CPT/HCPCS: 36415; 85025